=== PATIENT | male | born 1970 | race African-American/Black ===

== ENCOUNTER → 2018-02-24 | Outpatient (CLI) | payer OTHER | END | disposition home or self-care (01) | LOC: PPHC 11:52 | DX: Z76.0 Encounter for issue of repeat prescription (principal) ==

== ENCOUNTER 2021-06-29 08:21 | Outpatient (CLI) | payer OTHER | END 2021-06-29 08:41 | disposition home or self-care (01) | LOC: SONOGRAMA 08:21 | PROVIDERS: ATTEND Internal Medicine Cardiovascular Disease | DX: R10.84 Generalized abdominal pain (principal); J44.9 Chronic obstructive pulmonary disease, unspecified ==